=== PATIENT | female | born 1980 | race African-American/Black ===

== ENCOUNTER 2017-11-18 15:10 | Emergency (ER) | payer BC | END 2017-11-18 15:35 | disposition home or self-care (01) | LOC: MADERS 15:10 | DX: J02.0 Streptococcal pharyngitis (principal); I10 Essential (primary) hypertension; Z79.899 Other long term (current) drug therapy | CPT/HCPCS: 99283 ==

== ENCOUNTER 2019-04-29 13:09 | Emergency (ER) | payer BC, SELFPAY | END 2019-04-29 14:00 | disposition home or self-care (01) | LOC: MADERS 13:09 | DX: H66.91 Otitis media, unspecified, right ear (principal) | CPT/HCPCS: 99282 ==

== ENCOUNTER 2019-07-16 16:23 | Emergency (ER) | payer BC | END 2019-07-16 17:35 | disposition home or self-care (01) | LOC: MADERS 16:23 | DX: H60.92 Unspecified otitis externa, left ear (principal); H65.93 Unspecified nonsuppurative otitis media, bilateral; I10 Essential (primary) hypertension; D50.9 Iron deficiency anemia, unspecified; Z79.899 Other long term (current) drug therapy | CPT/HCPCS: 99282 ==

== ENCOUNTER 2021-12-12 07:18 | Outpatient (CLI) | payer BC ==
[2021-12-12 08:10] LABS: #Eosinphils 0.1 thou/uL (0.0-0.7); #Monocytes 0.5 thou/uL (0.11-0.59); #Neutrophils 3.2 thou/uL (1.40-6.50); %Basophils 0.5 % (0.0-1.0); %Eosinophils 1.1 % (0.0-10.0); %Lymphocytes 34.5 % (21.0-51.0); %Monocytes 8.6 % (0.0-10.0); %Neutrophils 55.3 % (42.0-75.0); Hemoglobin 12.7 g/dL (12.0-16.0); Mean Corpuscular HGB CONC 29.6 g/dL (32.0-36.0); Mean Corpuscular Hemoglobin 22.2 pg (27.0-31.0); Mean Corpuscular Volume 74.8 fL (78.0-98.0); Mean Platelet Volume 9.5 fL (7.4-10.4); Platelet Count 254 thou/uL (130-400); RBC Distribution Width 12.7 % (11.5-14.5); Red Blood Cell (RBC) Count 5.73 mill/uL (4.20-5.40); White Blood Cell (WBC) Count 5.8 thou/uL (4.8-10.8)
[2021-12-12 08:30] LABS: ALT (SGPT) 26 U/L (8-55); AST (SGOT) 17 U/L (5-34); Albumin 3.8 g/dL (3.5-5.0); Alkaline Phosphatase 28 U/L (40-110); Anion Gap 14 mmol/L (10-20); BUN (Urea Nitrogen) 10 mg/dL (7.0-18.7); Bilirubin, Total 0.3 mg/dL (0.2-1.2); Calc. Creatinine Clearance 0 mL/min (70-130); Calcium 8.8 mg/dL (7.8-10.44); Carbon Dioxide 22 mmol/L (22-29); Cardiac Risk 3.2 (Less than 4.5); Chloride 107 mmol/L (98-107); Cholesterol 184 mg/dl (< 200 Desired); Estimated GFR 107; Globulin 3.9 g/dL (2.4-3.5); Glucose 106 mg/dL (70-105); HDL Cholesterol 57 mg/dL (>60 Neg Risk); LDL Cholesterol, Calculated 112 mg/dL; Potassium 4.1 mmol/L (3.5-5.1); Protein, Total 7.7 g/dL (6.0-8.3); Sodium 139 mmol/L (136-145); Triglycerides 73 mg/dL (Less than 150)
[2021-12-12 08:44] LABS: Hypochromia SLIGHT = 6-15 cells (100X) (0-5/hpf); Microcytosis SLIGHT = 6-15 cells (100X) (0-5/hpf); Platelet Morphology Comment Y
[2021-12-12 12:28] LABS: Iron 83 ug/dL (50-170); Iron Binding Capacity, Total 351 mcg/dL (265-497)
[2021-12-12 12:55] LABS: Ferritin 149.8 ng/mL (10-291)
== END 2021-12-12 07:19 | disposition home or self-care (01) ==
LOC: MADLAB 07:18
PROVIDERS: ATTEND Family Medicine
DX: D50.9 Iron deficiency anemia, unspecified (principal); I10 Essential (primary) hypertension; E78.00 Pure hypercholesterolemia, unspecified; E53.8 Deficiency of other specified B group vitamins
CPT/HCPCS: 36415; 80053; 80061; 82607; 82728; 82746; 83540; 83550; 85025

== ENCOUNTER 2022-10-11 16:11 | Emergency (ER) | payer BC ==
[~2022-10-11 16:11] MED LIST: Iopamidol 370 76% 100 ML VIAL ONE
[2022-10-11 16:37] LABS: Bilirubin Negative (Negative); Blood, Urine Moderate (Negative); Glucose, Urine (Dipstick) Negative (Negative); Ketone, Urine Negative (Negative); Leukocyte Small (Negative); Nitrite Negative (Negative); Protein, Urine (Dipstick) Negative (Neg-Trace); Urobilinogen 0.2 mg/dL (Less than 2)
[2022-10-11 16:38] LABS: Clarity Hazy (Clear); Pregnancy Test - Urine (BHCG) Negative (Negative); Pregu Control Background? CLEAR/WHITE (CLR/WHITE); Pregu Control Bar Appear? YES (CONTROL BAR)
[2022-10-11 16:43] LABS: Bacteria/HPF Rare-Few HPF (None Seen)
[2022-10-11] MEDS ORDERED: Ondansetron PF 4 MG/2 ML Vial ONE (16:51)
[2022-10-11] MEDS ORDERED: Lactated Ringer's 1,000 ML ONE (16:51)
[2022-10-11] MEDS ORDERED: Dicyclomine 20 MG/2 ML VIAL ONE (16:51)
[2022-10-11] MEDS ORDERED: Ketorolac Tromethamine 30 MG/ML VIAL ONE (16:51)
[2022-10-11 17:15] LABS: ALT (SGPT) 40 U/L (8-55); AST (SGOT) 25 U/L (5-34); Albumin 4.1 g/dL (3.5-5.0); Alkaline Phosphatase 30 U/L (40-110); Anion Gap 15 mmol/L (10-20); BUN (Urea Nitrogen) 10 mg/dL (7.0-18.7); Bilirubin, Total 0.3 mg/dL (0.2-1.2); Calc. Creatinine Clearance 0 mL/min (70-130); Calcium 9.5 mg/dL (7.8-10.44); Carbon Dioxide 22 mmol/L (22-29); Chloride 103 mmol/L (98-107); Estimated GFR 93; Globulin 4.1 g/dL (2.4-3.5); Glucose 109 mg/dL (70-105); Lipase 45 U/L (8-78); Potassium 3.6 mmol/L (3.5-5.1); Protein, Total 8.2 g/dL (6.0-8.3); Sodium 136 mmol/L (136-145)
[2022-10-11 17:16] LABS: Hemoglobin 12.6 g/dL (12.0-16.0); Mean Corpuscular HGB CONC 30.2 g/dL (32.0-36.0); Mean Corpuscular Hemoglobin 23.3 pg (27.0-31.0); Mean Corpuscular Volume 77.2 fl (78.0-98.0); Mean Platelet Volume 9.5 fL (7.4-10.4); Platelet Count 278 10x3/uL (130-400); RBC Distribution Width 12.9 % (11.5-14.5); Red Blood Cell (RBC) Count 5.39 mill/uL (4.20-5.40); White Blood Cell (WBC) Count 8.9 10x3/uL (4.8-10.8)
[2022-10-11 17:23] LABS: Manual Diff?? YES
[2022-10-11 17:24] LABS: Eosinophils 2 % (0-10); Lymphocytes 16 % (21-51); MDiff Complete? YES; Monocytes 7 % (0-10); Neutrophil 67 % (42-75); Reactive Lymphocytes 8 % (0-10)
[2022-10-11 17:25] LABS: Platelet Morphology Comment Appears Adequate
[2022-10-11] MEDS ORDERED: Amoxicillin/Potassium Clav 875 MG TAB ONE (18:47)
== END 2022-10-11 19:00 | disposition home or self-care (01) ==
LOC: MADERS 16:11
DX: K57.32 Diverticulitis of large intestine without perforation or abscess without bleeding (principal); I10 Essential (primary) hypertension; Z79.899 Other long term (current) drug therapy
CPT/HCPCS: 74177; 80053; 81003; 81015; 81025; 83605; 83690; 85025; 94760; 96372; 96374; 96375; J1885; J2405; J7120; Q9967

== ENCOUNTER 2023-06-21 09:49 | Emergency (ER) | payer BC ==
[2023-06-21 10:32] LABS: Bilirubin Negative (Negative); Blood, Urine Moderate (Negative); Clarity Clear (Clear); Glucose, Urine (Dipstick) Negative (Negative); Ketone, Urine Negative (Negative); Leukocyte Negative (Negative); Nitrite Negative (Negative); Protein, Urine (Dipstick) 30 mg/dL (Neg-Trace); Specific Gravity, Urine 1.025 (1.005-1.030); Urobilinogen 0.2 mg/dL (Less than 2)
[2023-06-21 10:37] LABS: CAUTI Indications for Culture Pelvic or flank pain; WBC/HPF 0-3 HPF (0-3)
[2023-06-21 10:38] LABS: Bacteria/HPF Rare-Few HPF (None Seen); Pregnancy Test - Urine (BHCG) Negative (Negative); Pregu Control Background? CLEAR/WHITE (CLR/WHITE); Pregu Control Bar Appear? YES (CONTROL BAR); Specific Gravity 1.025 (1.002-1.036); Urine Culture Reflex No No
[2023-06-21 10:56] LABS: ALT (SGPT) 12 U/L (8-55); AST (SGOT) 14 U/L (5-34); Alkaline Phosphatase 29 U/L (40-110); Anion Gap 14 mmol/L (10-20); BUN (Urea Nitrogen) 12 mg/dL (7.0-18.7); Bilirubin, Total 0.3 mg/dL (0.2-1.2); Calc. Creatinine Clearance 0 mL/min (70-130); Calcium 9.5 mg/dL (7.8-10.44); Carbon Dioxide 22 mmol/L (22-29); Chloride 105 mmol/L (98-107); Estimated GFR 90; Globulin 4.1 g/dL (2.4-3.5); Glucose 137 mg/dL (70-105); Lipase 36 U/L (8-78); Potassium 4.4 mmol/L (3.5-5.1); Protein, Total 8.1 g/dL (6.0-8.3); Sodium 137 mmol/L (136-145)
[2023-06-21 10:59] LABS: Hematocrit 46.5 % (36.0-47.0); Hemoglobin 13.4 g/dL (12.0-16.0); MDiff Complete? YES; Manual Diff?? YES; Mean Corpuscular HGB CONC 28.8 g/dL (32.0-36.0); Mean Corpuscular Hemoglobin 22.7 pg (27.0-31.0); Mean Corpuscular Volume 78.9 fl (78.0-98.0); Mean Platelet Volume 9.6 fL (7.4-10.4); Platelet Count 264 10x3/uL (130-400); RBC Distribution Width 13.4 % (11.5-14.5); Red Blood Cell (RBC) Count 5.89 mill/uL (4.20-5.40); White Blood Cell (WBC) Count 8.1 10x3/uL (4.8-10.8)
[2023-06-21 11:00] LABS: Band 1 % (5-11); Eosinophils 1 % (0-10); Lymphocytes 16 % (21-51); Monocytes 3 % (0-10); Neutrophil 79 % (42-75); Platelet Adequacy Comment Appears Adequate; RBC Morph Comment Within Normal Limits
[2023-06-21] MEDS ORDERED: Amoxicillin/Potassium Clav 875 MG TAB ONE (11:24)
[2023-06-21] MEDS ORDERED: Ibuprofen 800 MG TAB ONE (11:25)
== END 2023-06-21 11:33 | disposition home or self-care (01) ==
LOC: MADERS 09:49
DX: K57.92 Diverticulitis of intestine, part unspecified, without perforation or abscess without bleeding (principal); I10 Essential (primary) hypertension
CPT/HCPCS: 36415; 74176; 80053; 81001; 81025; 83690; 85025